=== PATIENT | female | born 1960 | race Caucasian/White ===

== ENCOUNTER 2016-09-03 19:24 | Emergency (ER) | payer OTHER ==
[~2016-09-03] VITALS: Ht 162.6 cm; Wt 63.9 kg
[~2016-09-03 19:24] MED LIST: ASPI81 PO; CYCL-36 PO; MEDR4PAK3 PO; TAB-TAB PO
[2016-09-03 19:42] VITALS: BP 124/82; PULSE 76; RESP 18; TEMP 98.6; O2SAT 97
[2016-09-03] MEDS ORDERED: HYDR25TA5 PO (19:56)
[2016-09-03] MEDS ORDERED: OMEP20TA PO (19:56)
[2016-09-03] MEDS ORDERED: SODIUM CHLOR 0.9% 1000 ML INJ 1,000 ML IV SCH (20:18)
--- NOTE | 2016-09-03 20:21 | PD ---
HPI Chief Complaint: Abdominal Pain Time Seen by Provider: 20:07 Travel History International Travel<30 days: No Contact w/Intl Traveler<30days: No Traveled to known affect area: No History of Present Illness HPI The patient is a 55-year-old female that complains of abdominal pain and pressure nausea for 4 days. She does have some left flank tenderness. She does have a history kidney stones. Her pain level as 0 at this time. She has loose stools, was cerumen normal but denies any diarrhea. She has not been vomiting. She denies any fever. She has not had any abdominal surgery and still has her uterus, appendix and gallbladder. [facility] Past Medical History Diminished Hearing: No GERD: Yes Hypertension: Yes Influenza Vaccination: Yes ?: Not Past Surgical History Surgical History: No Previous Surgery Section: Yes Hysterectomy: Yes (21 YEARS AGO) Social History Alcohol Use: Yes (OCCASIONAL) Tobacco Use: Yes (ONE PACK DAILY) Substance Use: No Allergies-Medications (Allergen,Severity, Reaction): Coded Allergies: No Known Allergies (Verified , 09/03/16) Reported Meds & Prescriptions Reported Meds & Active Scripts Active Reported Hydrochlorothiazide 25 Mg Tab 25 Mg PO DAILY Omeprazole 20 Mg Tab 20 Mg PO DAILY Review of Systems Except as stated in HPI: all other systems reviewed are Neg Physical Exam Narrative GENERAL: The patient is alert, oriented 3 in no apparent distress except for her nausea. Her vital signs are normal. SKIN: Focused skin assessment warm/dry. HEAD: Atraumatic. Normocephalic. EYES: Pupils equal and round. No scleral icterus. No injection or drainage. ENT: No nasal bleeding or discharge. Mucous membranes pink and moist. NECK: Trachea midline. No JVD. CARDIOVASCULAR: Regular rate and rhythm. No murmur appreciated. RESPIRATORY: No accessory muscle use. Clear to auscultation. Breath sounds equal bilaterally. GASTROINTESTINAL: Abdomen soft, with minimal discomfort on the left flank, nondistended. Hepatic and splenic margins not palpable. No guarding or rebound is present. MUSCULOSKELETAL: No obvious deformities. No clubbing. No cyanosis. No edema. NEUROLOGICAL: Awake and alert. No obvious cranial nerve deficits. Motor grossly within normal limits. Normal speech. PSYCHIATRIC: Appropriate mood and affect; insight and judgment normal. Data Data Last Documented VS Vital Signs Date Time Temp Pulse Resp B/P Pulse Ox O2 Delivery O2 Flow Rate FiO2 5/10/17 20:39 20 09/03/16 20:37 71 120/74 95 09/03/16 19:42 98.6 Orders Complete Blood Count With Diff (09/03/16 20:18) Comprehensive Metabolic Panel (09/03/16 20:18) Lipase (09/03/16 20:18) Urinalysis - C+S If Indicated (09/03/16 20:18) Iv Access Insert/Monitor (09/03/16 20:18) Ecg Monitoring (09/03/16 20:18) Oximetry (09/03/16 20:18) Ondansetron Inj (Zofran Inj) (09/03/16 20:30) Sodium Chlor 0.9% 1000 Ml Inj (Ns 1000 M (09/03/16 20:18) Sodium Chloride 0.9% Flush (Ns Flush) (09/03/16 20:30) Labs Laboratory Tests Test 09/03/16 09/03/16 20:10 20:30 White Blood Count 8.8 TH/MM3 Red Blood Count 5.18 MIL/MM3 Hemoglobin 15.0 GM/DL Hematocrit 44.3 % Mean Corpuscular Volume 85.5 FL Mean Corpuscular Hemoglobin 29.0 PG Mean Corpuscular Hemoglobin 33.9 % Concent Red Cell Distribution Width 12.0 % Platelet Count 268 TH/MM3 Mean Platelet Volume 8.7 FL Neutrophils (%) (Auto) 42.7 % Lymphocytes (%) (Auto) 44.7 % Monocytes (%) (Auto) 7.9 % Eosinophils (%) (Auto) 4.1 % Basophils (%) (Auto) 0.6 % Neutrophils # (Auto) 3.7 TH/MM3 Lymphocytes # (Auto) 3.9 TH/MM3 Monocytes # (Auto) 0.7 TH/MM3 Eosinophils # (Auto) 0.4 TH/MM3 Basophils # (Auto) 0.1 TH/MM3 CBC Comment DIFF FINAL Differential Comment Sodium Level 139 MEQ/L Potassium Level 3.5 MEQ/L Chloride Level 98 MEQ/L Carbon Dioxide Level 32.8 MEQ/L Anion Gap 8 MEQ/L Blood Urea Nitrogen 13 MG/DL Creatinine 0.87 MG/DL Estimat Glomerular Filtration 67 ML/MIN Rate Random Glucose 110 MG/DL Calcium Level 8.9 MG/DL Total Bilirubin 0.3 MG/DL Aspartate Amino Transf 21 U/L (AST/SGOT) Alanine Aminotransferase 24 U/L (ALT/SGPT) Alkaline Phosphatase 77 U/L Total Protein 7.1 GM/DL Albumin 3.6 GM/DL Lipase 134 U/L Urine Color YELLOW Urine Turbidity CLEAR Urine pH 7.0 Urine Specific [place] 1.013 Urine Protein NEG mg/dL Urine Glucose (UA) NEG mg/dL Urine Ketones NEG mg/dL Urine Occult Blood TRACE Urine Nitrite NEG Urine Bilirubin NEG Urine Leukocyte Esterase NEG Urine Squamous Epithelial 0-5 /hpf Cells Microscopic Urinalysis Comment CULT NOT INDICATED MDM Medical Decision Making Medical Screen Exam Complete: Yes Emergency Medical Condition: Yes Medical Record Reviewed: Yes Interpretation(s) The CBC is normal. The complete metabolic profile shows a bicarbonate of 33 but is otherwise normal. The lipase is normal. The urinalysis shows trace occult blood but is otherwise normal and culture is not indicated. Differential Diagnosis Diverticulitis, urinary tract infection, urinary stone, gastroenteritis Narrative Course Repeat evaluation on the patient's abdomen abdominal exam shows a completely soft and nontender abdomen. She does tell me she had some pain in the left lower quadrant. This may have been a flareup of diverticulitis, it may have been a urinary stone. She does have loose stools and this may have been a gastroenteritis. Plan: The patient is worried about diverticulitis and she promises she will see a biomedical equipment support specialist about this. She is given Zofran for nausea which has worked well here, she has no nausea now. She is given prescriptions for Flagyl and Cipro and told not to take the antibiotics right away because she may get better in several days if this is a gastroenteritis. She should increase her liquid intake. Diagnosis Primary Impression: Diverticulitis Additional Instructions: As we discussed, the laboratory is normal except for trace amount of blood in the urine. This could be a urinary stone, gastroenteritis or diverticulitis. Because of the possibility of diverticulitis we will write you the antibiotics but do not take them right away, give several days to see if your symptoms resolved. Med/Other Pt SpecificInfo: Prescription(s) given Scripts Metronidazole (Flagyl)500 Mg [id number] Mg PO TID 10 Days Ref 0 Prov:Brendan Smith MD 09/03/16 Ciprofloxacin (Cipro)500 Mg [id number] Mg PO BID 10 Days Ref 0 Prov:Brendan Smith MD 09/03/16 Ondansetron (Zofran)4 Mg Tab4 Mg PO Q6HR PRN (NAUSEA OR VOMITING) #30 TAB Ref 0 Prov:Brendan Smith MD 09/03/16 Disposition: 01 DISCHARGE HOME Condition: Stable Brendan Smith MD September 03, 2016 20:21
[2016-09-03] MEDS ORDERED: SODIUM CHLORIDE 0.9% FLUSH 10 ML FLUSH IV FLUSH PRN (20:30)
[2016-09-03] MEDS ORDERED: ONDANSETRON HCL 4 MG/2 ML VIAL IVP ONE (20:30)
[2016-09-03 20:34] LABS: AUTOMATED NEUTROPHIL # 3.7 TH/MM3 (1.8-7.7); BASOPHIL # 0.1 TH/MM3 (0-0.2); BASOPHIL % 0.6 % (0.0-2.0); EOSINOPHIL # 0.4 TH/MM3 (0-0.4); EOSINOPHIL % 4.1 % (0.0-4.0); HEMATOCRIT 44.3 % (35.0-46.0); HEMO FLAGS DIFF FINAL; LYMPH % 44.7 % (9.0-44.0); LYMPHOCYTE # 3.9 TH/MM3 (1.0-4.8); MEAN CELL VOLUME 85.5 FL (80.0-100.0); MEAN CORPUSCULAR HGB CONC 33.9 % (32.0-36.0); MONO % 7.9 % (0.0-8.0); NEUT % 42.7 % (16.0-70.0); PLATELET COUNT 268 TH/MM3 (150-450); RED BLOOD COUNT 5.18 MIL/MM3 (4.00-5.30); WHITE BLOOD COUNT 8.8 TH/MM3 (4.0-11.0)
[2016-09-03 20:37] VITALS: BP 120/74; PULSE 71; RESP 20; O2SAT 95
[2016-09-03 20:40] LABS: BLOOD, URINE TRACE (NEG); GLUCOSE,URINE NEG (NEG); KETONE, URINE NEG (NEG); NITRITE,URINE NEG (NEG)
[2016-09-03 20:45] LABS: CHLORIDE 98 MEQ/L (98-107); POTASSIUM 3.5 MEQ/L (3.5-5.1); SODIUM (NA) 139 MEQ/L (136-145)
[2016-09-03 20:49] LABS: ANION GAP 8 MEQ/L (5-15); BICARBONATE 32.8 MEQ/L (21.0-32.0); BLOOD UREA NITROGEN 13 MG/DL (7-18)
[2016-09-03 20:52] LABS: URINE COLOR YELLOW (YELLW/STRAW)
[2016-09-03 20:52] LABS: ALT (GPT) 24 U/L (10-53); AST (GOT) 21 U/L (15-37); GLOMERULAR FILTRATION RATE 67 ML/MIN (>89)
[2016-09-03 20:53] LABS: COMMENT (UR) CULT NOT INDICATED; CULTURE IF INDICATED CULT NOT INDICATED; SQUAMOUS EPITHELIAL CELL URINE 0-5 /hpf (0-5)
[2016-09-03 20:54] LABS: TOTAL BILIRUBIN ADULT 0.3 MG/DL (0.2-1.0)
[2016-09-03 20:55] LABS: ALKALINE PHOSPHATASE 77 U/L (45-117)
[2016-09-03] MEDS ORDERED: CIPR-9 PO (22:04)
[2016-09-03] MEDS ORDERED: METR-1 PO (22:04)
[2016-09-03] MEDS ORDERED: ZOFR4TAB PO (22:04)
== END 2016-09-03 22:19 | disposition home or self-care (01) ==
LOC: PHED 19:24
DX: K57.92 Diverticulitis of intestine, part unspecified, without perforation or abscess without bleeding (principal); K21.9 Gastro-esophageal reflux disease without esophagitis; I10 Essential (primary) hypertension; F17.200 Nicotine dependence, unspecified, uncomplicated; Z79.899 Other long term (current) drug therapy
CPT/HCPCS: 80053; 81001; 83690; 85025; 96374; 99284; J2405; J7030

== ENCOUNTER → 2016-11-28 | Outpatient (CLI) | payer OTHER ==
[~2016-11-28] MED LIST changes: -ASPI81 PO; +CIPR-9 PO; -CYCL-36 PO; +HYDR25TA5 PO; -MEDR4PAK3 PO; +METR-1 PO; +OMEP20TA PO; -TAB-TAB PO; +ZOFR4TAB PO
[2016-11-28 13:24] LABS: BLOOD GAS BASE EXCESS 0.6 mmol/L (-2-2); BLOOD GAS CARBOXYHEMOGLOBIN 1.7 % (0-4); BLOOD GAS HCO3 24 mmol/L (22-26); BLOOD GAS O2 HGB SATURATION 94 % (90-100); BLOOD GAS OXYGEN CONTENT 19.5 Vol % (12.0-20.0); BLOOD GAS PCO2 37 mmHg (38-42); BLOOD GAS PO2 85 mmHg (61-120); BLOOD GAS TOTAL HGB 14.7 G/DL (12.0-16.0); TEMP CORR TO 98.6
[2016-11-28 13:25] LABS: CRITICAL VALUE NO; DRAW SITE RT RADIAL; FIO2 21 %; NUMBER OF ARTERIAL PUNCTURES 1; STAT NO; ULNAR PULSE PRESENT
--- NOTE | 2016-12-03 10:01 | RSPPFT ---
DATE OF PROCEDURE: 11/28/16 COMMENTS: Spirometry shows FVC of 2.5 at 83% of predicted, FEV1 of 1.4 at 58%, FEV1/FVC ratio is decreased. Flow is decreased at FEF 25, FEF 50, FEF 75 and FEF 25-75. There is no response after bronchodilator treatment. Lung volumes show residual volume is normal. TLC is normal. Diffusion capacity is decreased. Flow volume loop indicates an obstructive pattern. Blood gases show pH of 7.43, PCO2 of 37, Po2 of 95, BiCarb of 24, O2 Saturation at 94%. IMPRESSION: 1. Moderately severe obstructive lung disease. 2. No response after bronchodilator treatment. 3. Normal lung volumes. 4. Diffusion capacity is moderately decreased. 5. Blood gases show normal oxygenation on room air.
== END ==
LOC: HRSP 12:16
PROVIDERS: ATTEND Specialist
DX: J44.9 Chronic obstructive pulmonary disease, unspecified (principal)
CPT/HCPCS: 36600; 82805; 94060; 94726; 94729

== ENCOUNTER 2017-03-11 08:20 | Inpatient (IN) | payer OTHER ==
[~2017-03-11] VITALS: Ht 162.6 cm; Wt 62.0 kg
[2017-03-11] VITALS (11 sets, daily range): BP systolic 112–152; BP diastolic 67–84; PULSE 74–91; RESP 16–24; TEMP 97.8–98.7; O2SAT 91–99
[~2017-03-11 08:20] MED LIST changes: -OMEP20TA PO; +OMEP20TA93 PO
[2017-03-11] MEDS ORDERED: IOHEXOL 350 MG/ML 10 ML VIAL (for RAD DIAG) IVCONTRAST ONE (08:21)
[2017-03-11] MEDS ORDERED: SODIUM CHLOR 0.9% 1000 ML INJ 1,000 ML IV SCH (09:19)
--- NOTE | 2017-03-11 09:25 | PD ---
HPI Chief Complaint: Abdominal Pain Time Seen by Provider: 09:23 Travel History International Travel<30 days: No Contact w/Intl Traveler<30days: No Traveled to known affect area: No History of Present Illness HPI This Is a 56-year-old female with history of diverticulitis in the past who presents for evaluation of abdominal pain. For the past 2 days she has had lower abdominal pain which she describes as an aching pain which is constant. She had similar pain 1 week ago, She was seen in a walk-in clinic last week and diagnosed with a urinary tract infection and prescribed Macrobid. She reports that eventually she was told that urine culture results were negative. She denies any dysuria but she has had urinary hesitancy as well as constipation. She endorses nausea. Denies vomiting, flank pain, fevers, chills, vaginal bleeding or discharge. She has no other complaints at this time. [facility] Past Medical History Diminished Hearing: No GERD: Yes Hypertension: Yes ?: Not Past Surgical History Section: Yes Hysterectomy: Yes (21 YEARS AGO) Social History Alcohol Use: Yes (OCCASIONAL) Tobacco Use: Yes (ONE PACK DAILY) Substance Use: No Allergies-Medications (Allergen,Severity, Reaction): Coded Allergies: amoxicillin (Verified Allergy, Severe, RASH , 03/11/17) Sulfa (Sulfonamide Antibiotics) (Verified Adverse Reaction, Severe, NAUSEA , 03/11/17) Reported Meds & Prescriptions Reported Meds & Active Scripts Active Reported Anoro Ellipta Inh (Umeclidinium/Vilanterol) 62.5-25 Mcg/Act Aero 1 Puff INH DAILY Omeprazole 20 Mg Tab 20 Mg PO DAILY Review of Systems Except as stated in HPI: all other systems reviewed are Neg Physical Exam Narrative GENERAL: Well-developed well-nourished female in no acute distress SKIN: Warm and dry. HEAD: Atraumatic. Normocephalic. EYES: Pupils equal and round. No scleral icterus. No injection or drainage. ENT: No nasal bleeding or discharge. Mucous membranes pink and moist. NECK: Trachea midline. No JVD. CARDIOVASCULAR: Regular rate and rhythm. No murmur appreciated. RESPIRATORY: No accessory muscle use. Clear to auscultation. Breath sounds equal bilaterally. GASTROINTESTINAL: Abdomen soft, tender to palpation in lower quadrants without guarding. MUSCULOSKELETAL: No obvious deformities. No clubbing. No cyanosis. No edema. NEUROLOGICAL: Awake and alert. No obvious cranial nerve deficits. Motor grossly within normal limits. Normal speech. PSYCHIATRIC: Appropriate mood and affect; insight and judgment normal. Data Data Last Documented VS Vital Signs Date Time Temp Pulse Resp B/P (MAP) Pulse Ox O2 Delivery O2 Flow Rate FiO2 03/11/17 13:02 80 22 129/73 (91) 94 Room Air 03/11/17 08:38 97.8 Orders Orders Complete Blood Count With Diff (03/11/17 09:19) Comprehensive Metabolic Panel (03/11/17 09:19) Lipase (03/11/17 09:19) Urinalysis - C+S If Indicated (03/11/17 09:19) Ct Abd/Pel W Iv Contrast(Rout) (03/11/17 09:19) Iv Access Insert/Monitor (03/11/17 09:19) Ondansetron Inj (Zofran Inj) (03/11/17 09:30) Sodium Chlor 0.9% 1000 Ml Inj (Ns 1000 M (03/11/17 09:19) Morphine Inj (Morphine Inj) (03/11/17 11:00) Iohexol 350 Inj (Omnipaque 350 Inj) (03/11/17 08:21) Ciprofloxacin 400 Mg Premix (Cipro 400 M (03/11/17 12:45) Metronidazole 500 Mg Inj (Flagyl 500 Mg (03/11/17 12:45) Lactic Acid Sepsis Protocol (03/11/17 12:34) Blood Culture (03/11/17 12:34) Admit Order (Ed Use Only) (03/11/17 13:58) Consult Colorectal Surgery (03/11/17 ) Labs Laboratory Tests Test 03/11/17 10:10 03/11/17 10:15 03/11/17 12:45 Urine Color COLORLESS Urine Turbidity CLEAR Urine pH 7.5 Urine Specific [place] 1.001 Urine Protein NEG mg/dL Urine Glucose (UA) NEG mg/dL Urine Ketones NEG mg/dL Urine Occult Blood NEG Urine Nitrite NEG Urine Bilirubin NEG Urine Urobilinogen LESS THAN 2.0 MG/DL Urine Leukocyte Esterase NEG Urine RBC LESS THAN 1 /hpf Microscopic Urinalysis Comment CULT NOT INDICATED White Blood Count 17.2 TH/MM3 Red Blood Count 5.13 MIL/MM3 Hemoglobin 14.9 GM/DL Hematocrit 44.6 % Mean Corpuscular Volume 86.9 FL Mean Corpuscular Hemoglobin 29.0 PG Mean Corpuscular Hemoglobin Concent 33.4 % Red Cell Distribution Width 13.7 % Platelet Count 296 TH/MM3 Mean Platelet Volume 8.2 FL Neutrophils (%) (Auto) 79.0 % Lymphocytes (%) (Auto) 13.8 % Monocytes (%) (Auto) 6.5 % Eosinophils (%) (Auto) 0.4 % Basophils (%) (Auto) 0.3 % Neutrophils # (Auto) 13.6 TH/MM3 Lymphocytes # (Auto) 2.4 TH/MM3 Monocytes # (Auto) 1.1 TH/MM3 Eosinophils # (Auto) 0.1 TH/MM3 Basophils # (Auto) 0.1 TH/MM3 CBC Comment DIFF FINAL Differential Comment Blood Urea Nitrogen 7 MG/DL Creatinine 0.60 MG/DL Random Glucose 98 MG/DL Total Protein 7.3 GM/DL Albumin 3.1 GM/DL Calcium Level 9.2 MG/DL Alkaline Phosphatase 86 U/L Aspartate Amino Transf (AST/SGOT) 20 U/L Alanine Aminotransferase (ALT/SGPT) 24 U/L Total Bilirubin 0.5 MG/DL Sodium Level 131 MEQ/L Potassium Level 3.9 MEQ/L Chloride Level 95 MEQ/L Carbon Dioxide Level 28.5 MEQ/L Anion Gap 8 MEQ/L Estimat Glomerular Filtration Rate 103 ML/MIN Lipase 76 U/L Lactic Acid Level 0.7 mmol/L MDM Medical Decision Making Medical Screen Exam Complete: Yes Emergency Medical Condition: Yes Medical Record Reviewed: Yes Differential Diagnosis Diverticulitis, colitis, appendicitis, intra-abdominal mass, cystitis Narrative Course 56-year-old female with lower abdominal pain. She appears well. Plan is for basic lab work, CT abdomen and pelvis. She was given IV fluids, Zofran, morphine. Labwork notable for WBC count of 17. CT of the abdomen and pelvis reveals intense inflammatory change and phlegmon involving the distal sigmoid at the rectosigmoid junction. The exam does demonstrate what is either a large diverticulum with some gas and stool within it or possibly a small abscess along the superior margin of the colon. This is not in a location which would be amenable to CT-guided drainage. IV antibiotics have been initiated. Lactic acid, blood cultures have been added on. Colorectal surgery was paged, the patient will be admitted to the hospitalist group. Diagnosis Primary Impression: Diverticulitis Admitting Information Admitting Physician Requests: Admit Rayo Chapa Mar 11, 2017 09:25
[2017-03-11] MEDS ORDERED: ONDANSETRON HCL 4 MG/2 ML VIAL IVP ONE (09:30)
--- NOTE | 2017-03-11 09:37 | PD ---
Physical Exam Date Seen by Provider: Mar 11, 2017 Narrative Patient presents with a chief complaint of lower abdominal pain Data Data Last Documented VS Vital Signs Date Time Temp Pulse Resp B/P (MAP) Pulse Ox O2 Delivery O2 Flow Rate FiO2 03/11/17 08:38 97.8 90 17 152/82 (105) 96 Orders Orders Complete Blood Count With Diff (03/11/17 09:19) Comprehensive Metabolic Panel (03/11/17 09:19) Lipase (03/11/17 09:19) Urinalysis - C+S If Indicated (03/11/17 09:19) Ct Abd/Pel W Iv Contrast(Rout) (03/11/17 09:19) Iv Access Insert/Monitor (03/11/17 09:19) Ondansetron Inj (Zofran Inj) (03/11/17 09:30) Sodium Chlor 0.9% 1000 Ml Inj (Ns 1000 M (03/11/17 09:19) MDM Supervised Visit with ISAAC: Yes Narrative Course I, Dr. Almanzar, have reviewed the advance practice practitioner's documentation and am in agreement, met with the patient face to face, made the diagnosis, and the medical decision making was done by me. *My assessment and Findings: Patient is lying on the bed with her eyes closed the entire time that I was talking with her. Her abdomen was soft but she did have some lower abdominal tenderness. No guarding or rebound. Please see Rayo Chapa PA-C's note for results of laboratory and radiographic evaluation, ED course, final diagnosis and disposition Miguelina Almanzar MD Mar 11, 2017 09:37
[2017-03-11 10:56] LABS: BLOOD, URINE NEG (NEG); GLUCOSE,URINE NEG (NEG); KETONE, URINE NEG (NEG); NITRITE,URINE NEG (NEG); PH, URINE 7.5 (5.0-8.5); URINE COLOR COLORLESS (YELLW/STRAW)
[2017-03-11 10:57] LABS: COMMENT (UR) CULT NOT INDICATED; CULTURE IF INDICATED CULT NOT INDICATED
[2017-03-11 10:58] LABS: AUTOMATED NEUTROPHIL # 13.6 TH/MM3 (1.8-7.7); BASOPHIL # 0.1 TH/MM3 (0-0.2); BASOPHIL % 0.3 % (0.0-2.0); EOSINOPHIL # 0.1 TH/MM3 (0-0.4); EOSINOPHIL % 0.4 % (0.0-4.0); HEMATOCRIT 44.6 % (35.0-46.0); HEMO FLAGS DIFF FINAL; LYMPH % 13.8 % (9.0-44.0); LYMPHOCYTE # 2.4 TH/MM3 (1.0-4.8); MEAN CELL VOLUME 86.9 FL (80.0-100.0); MEAN CORPUSCULAR HGB CONC 33.4 % (32.0-36.0); MONO % 6.5 % (0.0-8.0); PLATELET COUNT 296 TH/MM3 (150-450); RED BLOOD COUNT 5.13 MIL/MM3 (4.00-5.30); RED CELL DISTRIBUTION WIDTH 13.7 % (11.6-17.2); WHITE BLOOD COUNT 17.2 TH/MM3 (4.0-11.0)
[2017-03-11] MEDS ORDERED: MORPHINE SULFATE 4 MG/ML INJ IV PUSH ONE (11:00)
[2017-03-11 11:12] LABS: ALT (GPT) 24 U/L (10-53)
[2017-03-11 11:14] LABS: ALKALINE PHOSPHATASE 86 U/L (45-117); TOTAL BILIRUBIN ADULT 0.5 MG/DL (0.2-1.0)
[2017-03-11 11:20] LABS: ANION GAP 8 MEQ/L (5-15); AST (GOT) 20 U/L (15-37); BICARBONATE 28.5 MEQ/L (21.0-32.0); BLOOD UREA NITROGEN 7 MG/DL (7-18); CHLORIDE 95 MEQ/L (98-107); GLOMERULAR FILTRATION RATE 103 ML/MIN (>89); SODIUM (NA) 131 MEQ/L (136-145)
[2017-03-11 11:24] LABS: POTASSIUM 3.9 MEQ/L (3.5-5.1)
--- NOTE | 2017-03-11 12:28 | RADRPT ---
EXAM DATE/TIME: 03/11/2017 11:48 [place] COMPARISON: No previous studies available for comparison. INDICATIONS : Mid abdomen pain for one week. IV CONTRAST: 85 cc Omnipaque 350 (iohexol) IV ORAL CONTRAST: No oral contrast ingested. RADIATION DOSE: 6.30 CTDIvol (mGy) MEDICAL HISTORY : Hypertension. SURGICAL HISTORY : Hysterectomy. ENCOUNTER: Initial ACUITY: 1 week PAIN SCALE: 7/10 LOCATION: middle Abdomen TECHNIQUE: Volumetric scanning of the abdomen and pelvis was performed. Using automated exposure control and ad justment of the mA and/or kV according to patient size, radiation dose was kept as low as reasonably achievable to obtain optimal diagnostic quality images. DICOM format image data is available electro nically for review and comparison. FINDINGS: The limited portion of the lung base visualized is clear. The appearance of the liver, spleen, pancreas, adrenal glands and kidneys is within normal limits. The abdominal aorta is normal in caliber. There is no retroperitoneal adenopathy. No free air is seen within the upper abdomen. Imaging through the pelvis demonstrate intense inflammatory changes involving the distal sigmoid colo n and rectosigmoid junction. There are scattered diverticuli through this area. Exam would be most co nsistent with an acute diverticulitis. There is a focal area of the top of the inflamed segment of co selam measuring approximately 2.7 cm. This either represents a large diverticulum with gas and stool wi thin it or possibly small abscess. This is not in a location which would be amenable to CT-guided sonam inage. No free intraperitoneal air is seen. No iliac or inguinal adenopathy is seen. The reproductive organs are intact. CONCLUSION: There is intense inflammatory change and phlegmon involving the distal sigmoid at the rectosigmoid ju nction. The exam does demonstrate what is either a large diverticulum with some gas and stool within it or possibly a small abscess along the superior margin of the colon. This is not in a location whic h would be amenable to CT-guided drainage. Chucho Tellez MD on March 11, 2017 at 12:21 Board Certified Radiologist. This report was verified electronically.
[2017-03-11] MEDS ORDERED: metroNIDAZOLE 500 MG INJ 100 ML IV ONE (12:45)
[2017-03-11] MEDS ORDERED: CIPROFLOXACIN 400 MG PREMIX 200 ML IV ONE (12:45)
[2017-03-11] MEDS ORDERED: UMEC1AER INH (13:04)
--- NOTE | 2017-03-11 15:47 | HHI.HP ---
HPI Service [facility] Hospitalists Primary Care Physician Edgard Garcia MD Admission Diagnosis diverticulitis, possible abscess Chief Complaint: Abdominal pain Travel History International Travel<30 Days: No Contact w/Intl Traveler <30 Da: No Traveled to Known Affected Are: No History of Present Illness Mrs. Sweet is a pleasant 56 y/o WF with COPD, GERD, hx of colon polyps and hx of diverticulitis. Pt presented to the ED with complaints of abd pain. The pt started having abd pain around 10 days ago. She was seen at urgent care on with complaints of abd pain and dysuria and was given Macrobid x 7 days for possible UTI. She had some slight improvement while on the antibiotics but then after that was completed she started having more abd pain in the lower abdomen and constipation. Over the last few days those symptoms seemed to worsen and this prompted her to go to the ED. She has had difficulty with passing stools and took OTC oral laxative the last two times to try to have a BM. The pain is located more in the LLQ and lower abd pain. CT Abd/pelvis in the ED noted intense inflammatory change and phlegmon involving the distal sigmoid at the rectosigmoid junction, the exam does demonstrate what is either a large diverticulum with some gas and stool within it or possibly a small abscess along the superior margin of the colon. This is not in a location which would be amenable to CT-guided drainage. Pt was given Cipro and Flagyl in the ED. She is being admitted for continued IV Abx and CRS was consulted from the ED. Pt has had some issues with fecal incontinence recently and is following with [facility]. She was supposed to have a colonoscopy scheduled but hasn't scheduled that yet. Her last colonoscopy was around 08/14/2008 and had noted a sessile polyp in the cecum and was recommended to have a repeat colonoscopy in 1 year which she has not had done. Review of Systems Constitutional: DENIES: Fever, Chills Eyes: DENIES: Vision loss Ears, nose, mouth, throat: DENIES: Hearing loss Respiratory: DENIES: Cough, Shortness of breath Cardiovascular: DENIES: Chest pain, Palpitations, Lower Extremity Edema Gastrointestinal: COMPLAINS OF: Abdominal pain, Constipation, DENIES: Black stools, Bloody stools, Diarrhea, Nausea, Vomiting Genitourinary: COMPLAINS OF: Dysuria, DENIES: Urinary incontinence, Hematuria Musculoskeletal: DENIES: Back pain Integumentary: DENIES: Rash Neurologic: DENIES: Headache Psychiatric: DENIES: Confusion Past Family Social History Past Medical History COPD GERD Hx of HTN Questionable diagnosis with relapsing/remitting MS but has been off medications for about 10 years pt had previous numbness in both legs and she states that she had "lesions" on her brain Pt followed with Dr. Blum Past Surgical History Cesarian section 31 years ago Reported Medications Anoro Ellipta Inh (Umeclidinium/Vilanterol) 62.5-25 Mcg/Act Aero 1 Puff INH DAILY Omeprazole 20 Mg Tab 20 Mg PO DAILY Allergies: Coded Allergies: amoxicillin (Verified Allergy, Severe, RASH , 03/11/17) Sulfa (Sulfonamide Antibiotics) (Verified Adverse Reaction, Severe, NAUSEA , 03/11/17) Family History Noncontributory Social History Rare alcohol use (+)Tobacco use ~1ppd for 30+ years, now smokes a couple cigarettes per day Physical Exam Vital Signs Vital Signs Date Time Temp Pulse Resp B/P (MAP) Pulse Ox O2 Delivery O2 Flow Rate FiO2 03/11/17 13:02 80 22 129/73 (91) 94 Room Air 03/11/17 12:00 22 03/11/17 11:30 80 24 131/82 (98) 94 Room Air 03/11/17 10:30 82 22 128/82 (97) 97 Room Air 03/11/17 10:06 79 23 134/84 (101) 96 Room Air 03/11/17 08:38 97.8 90 17 152/82 (105) 96 Physical Exam GENERAL: This is a well-nourished, well-developed patient, in no apparent distress. HEENT: Atraumatic. Normocephalic. No temporal or scalp tenderness. No scleral icterus. Airway patent. NECK: Trachea midline, supple, nontender. CARDIO: Regular. RESP: CTA bilaterally. No wheezes, rales, or rhonchi. ABD: +BS, soft, lower abdominal tenderness, nondistended. EXT: Extremities without clubbing, cyanosis, or edema. NEURO: Awake and alert. Motor and sensory grossly within normal limits. Normal speech. Laboratory Laboratory Tests Test 03/11/17 10:10 03/11/17 10:15 03/11/17 12:45 Urine Color COLORLESS Urine Turbidity CLEAR Urine pH 7.5 Urine Specific [place] 1.001 Urine Protein NEG Urine Glucose (UA) NEG Urine Ketones NEG Urine Occult Blood NEG Urine Nitrite NEG Urine Bilirubin NEG Urine Urobilinogen LESS THAN 2.0 Urine Leukocyte Esterase NEG Urine RBC LESS THAN 1 Microscopic Urinalysis Comment CULT NOT INDICATED White Blood Count 17.2 Red Blood Count 5.13 Hemoglobin 14.9 Hematocrit 44.6 Mean Corpuscular Volume 86.9 Mean Corpuscular Hemoglobin 29.0 Mean Corpuscular Hemoglobin Concent 33.4 Red Cell Distribution Width 13.7 Platelet Count 296 Mean Platelet Volume 8.2 Neutrophils (%) (Auto) 79.0 Lymphocytes (%) (Auto) 13.8 Monocytes (%) (Auto) 6.5 Eosinophils (%) (Auto) 0.4 Basophils (%) (Auto) 0.3 Neutrophils # (Auto) 13.6 Lymphocytes # (Auto) 2.4 Monocytes # (Auto) 1.1 Eosinophils # (Auto) 0.1 Basophils # (Auto) 0.1 CBC Comment DIFF FINAL Differential Comment Blood Urea Nitrogen 7 Creatinine 0.60 Random Glucose 98 Total Protein 7.3 Albumin 3.1 Calcium Level 9.2 Alkaline Phosphatase 86 Aspartate Amino Transf (AST/SGOT) 20 Alanine Aminotransferase (ALT/SGPT) 24 Total Bilirubin 0.5 Sodium Level 131 Potassium Level 3.9 Chloride Level 95 Carbon Dioxide Level 28.5 Anion Gap 8 Estimat Glomerular Filtration Rate 103 Lipase 76 Lactic Acid Level 0.7 Date/Time Source Procedure Growth Status 03/11/17 12:46 Blood Peripheral Aerobic Blood Culture Pending Received 03/11/17 12:46 Blood Peripheral Anaerobic Blood Culture Pending Received Result Diagram: 03/11/17 1015 03/11/17 1015 Imaging Last Impressions Abdomen/Pelvis CT 03/11/17 0919 Signed Impressions: Service Date/Time: Saturday, March 11, 2017 11:48 - CONCLUSION: There is intense inflammatory change and phlegmon involving the distal sigmoid at the rectosigmoid junction. The exam does demonstrate what is either a large diverticulum with some gas and stool within it or possibly a small abscess along the superior margin of the colon. This is not in a location which would be amenable to CT-guided drainage. Chucho Tellez MD Septic Shock Reassessment Heart: Regular rate and rhythm Lungs: Clear Skin: Warm Caprini VTE Risk Assessment Caprini VTE Risk Assessment: No/Low Risk (score <= 1) Caprini Risk Assessment Model Point Value = 1 Point Value = 2 Point Value = 3 Point Value = 5 Age 41-60 Minor surgery BMI > 25 kg/m2 Swollen legs Varicose veins or History of unexplained or recurrent spontaneous Oral contraceptives or hormone replacement Sepsis (< 1 month) Serious lung disease, including pneumonia (< 1 month) Abnormal pulmonary function Acute myocardial infarction Congestive heart failure (< 1 month) History of inflammatory bowel disease Medical patient at bed rest Age 61-74 Arthroscopic surgery Major open surgery (> 45 min) Laparoscopic surgery (> 45 min) Malignancy Confined to bed (> 72 hours) Immobilizing plaster cast Central venous access Age >= 75 History of VTE Family history of VTE Factor V Leiden Prothrombin [id number] Lupus anticoagulant Anticardiolipin antibodies Elevated serum homocysteine Heparin-induced thrombocytopenia Other congenital or acquired thrombophilia Stroke (< 1 month) Elective arthroplasty Hip, pelvis, or leg fracture Acute spinal cord injury (< 1 month) Prophylaxis Regimen Total Risk Factor Score Risk Level Prophylaxis Regimen 0-1 Low Early ambulation 2 Moderate Order ONE of the following: *Sequential Compression Device (SCD) *Heparin 5000 units SQ BID 3-4 Higher Order ONE of the following medications: *Heparin 5000 units SQ TID *Enoxaparin/Lovenox 40 mg SQ daily (WT < 150 kg, CrCl > 30 mL/min) *Enoxaparin/Lovenox 30 mg SQ daily (WT < 150 kg, CrCl > 10-29 mL/min) *Enoxaparin/Lovenox 30 mg SQ BID (WT < 150 kg, CrCl > 30 mL/min) AND/OR *Sequential Compression Device (SCD) 5 or more Highest Order ONE of the following medications: *Heparin 5000 units SQ TID (Preferred with Epidurals) *Enoxaparin/Lovenox 40 mg SQ daily (WT < 150 kg, CrCl > 30 mL/min) *Enoxaparin/Lovenox 30 mg SQ daily (WT < 150 kg, CrCl > 10-29 mL/min) *Enoxaparin/Lovenox 30 mg SQ BID (WT < 150 kg, CrCl > 30 mL/min) AND *Sequential Compression Device (SCD) Assessment and Plan Problem List: (1) Diverticulitis ICD Codes: K57.92 - Diverticulitis of intestine, part unspecified, without perforation or abscess without bleeding Status: Acute Plan: Diverticulitis Abdominal pain - Pt was admitted with worsening abd pain with remote hx of diverticulitis, constipation, and hx of colon polyps - CT Abd/pelvis (03/11/17) --> There is intense inflammatory change and phlegmon involving the distal sigmoid at the rectosigmoid junction. The exam does demonstrate what is either a large diverticulum with some gas and stool within it or possibly a small abscess along the superior margin of the colon. This is not in a location which would be amenable to CT -guided drainage. - Pt has been started on Flagyl and Levaquin IV - IVF - Clear liquid diet - Pain control PRN - Antiemetics - CRS was consulted in the ED - Supportive care GERD - PPI COPD - Cont. home meds - Duonebs PRN (2) GERD (gastroesophageal reflux disease) ICD Codes: K21.9 - Gastro-esophageal reflux disease without esophagitis (3) COPD (chronic obstructive pulmonary disease) ICD Codes: J44.9 - Chronic obstructive pulmonary disease, unspecified Tere Rogers Mar 11, 2017 15:47
[2017-03-11] MEDS ORDERED: ACETAMINOPHEN 325 MG TAB PO PRN (16:15)
[2017-03-11] MEDS ORDERED: ONDANSETRON HCL 4 MG/2 ML VIAL IV PRN (16:15)
[2017-03-11] MEDS: SODIUM CHLOR 0.9% 1000 ML INJ 1,000 ML IV SCH (17:45)
[2017-03-11] MEDS: MORPHINE SULFATE 4 MG/ML INJ IV PUSH PRN (17:45)
[2017-03-11] MEDS: metroNIDAZOLE 500 MG INJ 100 ML IV SCH (21:05)
[2017-03-12] VITALS: BP 113/67; PULSE 82; RESP 17; TEMP 96.8; O2SAT 91
[2017-03-12] MEDS: SODIUM CHLOR 0.9% 1000 ML INJ 1,000 ML IV SCH ×2 (02:15→13:16)
[2017-03-12] MEDS: metroNIDAZOLE 500 MG INJ 100 ML IV SCH ×3 (04:55→20:55)
[2017-03-12] MEDS: ACETAMINOPHEN/HYDROcodone 325 MG/5 MG TAB PO PRN ×3 (05:21→17:36)
[2017-03-12 08:00] VITALS: BP 115/60; PULSE 69; RESP 17; TEMP 96.2; O2SAT 92
[2017-03-12 08:53] LABS: BASOPHIL # 0.1 TH/MM3 (0-0.2); BASOPHIL % 0.4 % (0.0-2.0); EOSINOPHIL # 0.1 TH/MM3 (0-0.4); EOSINOPHIL % 0.8 % (0.0-4.0); HEMATOCRIT 41.8 % (35.0-46.0); HEMO FLAGS DIFF FINAL; LYMPH % 15.2 % (9.0-44.0); LYMPHOCYTE # 2.2 TH/MM3 (1.0-4.8); MEAN CELL VOLUME 87.3 FL (80.0-100.0); MEAN CORPUSCULAR HEMOGLOBIN 29.2 PG (27.0-34.0); MEAN CORPUSCULAR HGB CONC 33.4 % (32.0-36.0); MONO % 8.2 % (0.0-8.0); NEUT % 75.4 % (16.0-70.0); PLATELET COUNT 276 TH/MM3 (150-450); RED BLOOD COUNT 4.79 MIL/MM3 (4.00-5.30); RED CELL DISTRIBUTION WIDTH 13.5 % (11.6-17.2); WHITE BLOOD COUNT 14.5 TH/MM3 (4.0-11.0)
[2017-03-12 09:21] LABS: POTASSIUM 3.7 MEQ/L (3.5-5.1)
[2017-03-12 10:04] LABS: BICARBONATE 24.6 MEQ/L (21.0-32.0)
[2017-03-12] MEDS ORDERED: POLYETHYLENE GLYCOL 17 GM PKG PO PRN (10:45)
--- NOTE | 2017-03-12 10:45 | HHI.PR ---
Subjective Remarks Pt reports that her abd pain is slightly better today No BM No nausea/vomiting Tolerating clear liquids Objective Vitals Vital Signs Date Time Temp Pulse Resp B/P (MAP) Pulse Ox O2 Delivery O2 Flow Rate FiO2 03/12/17 08:00 96.2 69 17 115/60 (78) 92 03/12/17 06:36 20 03/12/17 00:00 96.8 82 17 113/67 (82) 91 03/11/17 20:00 98.7 91 18 117/67 (84) 91 03/11/17 18:00 98.4 82 16 116/68 (84) 94 03/11/17 17:57 03/11/17 17:00 80 23 127/74 (91) 99 Nasal Cannula 2.00 03/11/17 16:30 84 23 139/74 (95) 98 Nasal Cannula 2.00 03/11/17 15:00 74 24 122/74 (90) 99 Nasal Cannula 2.00 03/11/17 14:00 80 24 112/69 (83) 92 Nasal Cannula 2.00 03/11/17 13:02 80 22 129/73 (91) 94 Room Air 03/11/17 12:00 22 03/11/17 11:30 80 24 131/82 (98) 94 Room Air Result Diagram: 03/12/17 0751 03/12/17 0751 Other Results Laboratory Tests Test 03/11/17 10:10 03/11/17 10:15 03/11/17 12:45 03/12/17 07:51 Urine Color COLORLESS Urine Turbidity CLEAR Urine pH 7.5 Urine Specific [place] 1.001 Urine Protein NEG mg/dL Urine Glucose (UA) NEG mg/dL Urine Ketones NEG mg/dL Urine Occult Blood NEG Urine Nitrite NEG Urine Bilirubin NEG Urine Urobilinogen LESS THAN 2.0 MG/DL Urine Leukocyte Esterase NEG Urine RBC LESS THAN 1 /hpf Microscopic Urinalysis Comment CULT NOT INDICATED White Blood Count 17.2 TH/MM3 14.5 TH/MM3 Red Blood Count 5.13 MIL/MM3 4.79 MIL/MM3 Hemoglobin 14.9 GM/DL 14.0 GM/DL Hematocrit 44.6 % 41.8 % Mean Corpuscular Volume 86.9 FL 87.3 FL Mean Corpuscular Hemoglobin 29.0 PG 29.2 PG Mean Corpuscular Hemoglobin Concent 33.4 % 33.4 % Red Cell Distribution Width 13.7 % 13.5 % Platelet Count 296 TH/MM3 276 TH/MM3 Mean Platelet Volume 8.2 FL 8.1 FL Neutrophils (%) (Auto) 79.0 % 75.4 % Lymphocytes (%) (Auto) 13.8 % 15.2 % Monocytes (%) (Auto) 6.5 % 8.2 % Eosinophils (%) (Auto) 0.4 % 0.8 % Basophils (%) (Auto) 0.3 % 0.4 % Neutrophils # (Auto) 13.6 TH/MM3 11.0 TH/MM3 Lymphocytes # (Auto) 2.4 TH/MM3 2.2 TH/MM3 Monocytes # (Auto) 1.1 TH/MM3 1.2 TH/MM3 Eosinophils # (Auto) 0.1 TH/MM3 0.1 TH/MM3 Basophils # (Auto) 0.1 TH/MM3 0.1 TH/MM3 CBC Comment DIFF FINAL DIFF FINAL Differential Comment Blood Urea Nitrogen 7 MG/DL 8 MG/DL Creatinine 0.60 MG/DL 0.61 MG/DL Random Glucose 98 MG/DL 91 MG/DL Total Protein 7.3 GM/DL Albumin 3.1 GM/DL Calcium Level 9.2 MG/DL 8.6 MG/DL Alkaline Phosphatase 86 U/L Aspartate Amino Transf (AST/SGOT) 20 U/L Alanine Aminotransferase (ALT/SGPT) 24 U/L Total Bilirubin 0.5 MG/DL Sodium Level 131 MEQ/L 137 MEQ/L Potassium Level 3.9 MEQ/L 3.7 MEQ/L Chloride Level 95 MEQ/L 102 MEQ/L Carbon Dioxide Level 28.5 MEQ/L 24.6 MEQ/L Anion Gap 8 MEQ/L 10 MEQ/L Estimat Glomerular Filtration Rate 103 ML/MIN 101 ML/MIN Lipase 76 U/L Lactic Acid Level 0.7 mmol/L Imaging Last Impressions Abdomen/Pelvis CT 03/11/17 0919 Signed Impressions: Service Date/Time: Saturday, March 11, 2017 11:48 - CONCLUSION: There is intense inflammatory change and phlegmon involving the distal sigmoid at the rectosigmoid junction. The exam does demonstrate what is either a large diverticulum with some gas and stool within it or possibly a small abscess along the superior margin of the colon. This is not in a location which would be amenable to CT-guided drainage. Chucho Tellez MD Objective Remarks General: NAD, AAOx3 Chest: CTA Cardiac: Regular Abd: +BS, soft, mildly distended, left sided tenderness, no guarding or rebound Ext: No edema A/P Problem List: (1) Diverticulitis ICD Codes: K57.92 - Diverticulitis of intestine, part unspecified, without perforation or abscess without bleeding Status: Acute Plan: Diverticulitis Abdominal pain - Pt was admitted with worsening abd pain with remote hx of diverticulitis, constipation, and hx of colon polyps - CT Abd/pelvis (03/11/17) --> There is intense inflammatory change and phlegmon involving the distal sigmoid at the rectosigmoid junction. The exam does demonstrate what is either a large diverticulum with some gas and stool within it or possibly a small abscess along the superior margin of the colon. This is not in a location which would be amenable to CT -guided drainage. - Cont Flagyl and Levaquin IV - IVF - Clear liquid diet - Pain control PRN - Antiemetics - Awaiting CRS consultation - Supportive care GERD - PPI COPD - Cont. home meds - Duonebs PRN (2) GERD (gastroesophageal reflux disease) ICD Codes: K21.9 - Gastro-esophageal reflux disease without esophagitis Status: Chronic Plan: - See above (3) COPD (chronic obstructive pulmonary disease) ICD Codes: J44.9 - Chronic obstructive pulmonary disease, unspecified Status: Chronic Plan: - See above Assessment and Plan Patient examined. Assessment and plan formulated with Tere Rogers PA-C. I agree with the above. diverticulitis. improving. cont ivf/clears/abx. CRS following. d/c tomorrow and f/u if ok with CRS Tere Rogers Mar 12, 2017 10:45 Tim Gauthier MD Mar 12, 2017 15:12
[2017-03-12] MEDS: DOCUSATE SODIUM 100 MG CAP PO SCH ×2 (11:02→20:55)
[2017-03-12 12:00] VITALS: BP 120/68; PULSE 72; RESP 17; TEMP 97.5; O2SAT 94
[2017-03-12] MEDS: LEVOFLOXACIN 500 MG PREMIX INJ 100 ML IV SCH (13:16)
[2017-03-12 16:00] VITALS: BP 133/72; PULSE 81; RESP 17; TEMP 97.2; O2SAT 97
[2017-03-12 20:00] VITALS: BP 145/82; PULSE 85; RESP 18; TEMP 97.9; O2SAT 94
--- NOTE | 2017-03-12 23:33 | MB ---
cc: MARGRET WALSH M.D., [place] DATE OF CONSULTATION March 12, 2017 CHIEF COMPLAINT Diverticulitis. HISTORY OF PRESENT ILLNESS The patient is a 56-year-old female with a history of COPD and colon polyps. She came to the emergency department with abdominal pain. She was actually seen in the urgent care about 8-9 days ago with complaints of abdominal pain, dysuria and was felt to have a urinary tract infection. She was treated with Macrobid with minimal improvement but as her pain continued she came to the emergency department. She was evaluated by CT scan which showed evidence of diverticulitis with a possible either abscess versus a large diverticulum with some gas in it which was not amenable to CT-guided drainage. She was treated with Cipro and Flagyl and I have been asked to see her. She says since arriving in the hospital her pain has improved somewhat, although, she is still having significant pain. She has had multiple previous episodes of diverticulitis, she thinks possibly three or four, none of which have been complicated by a fistula or abscess to her knowledge. Her most recent colonoscopy was in 2008 and at that time she was noted to have sessile polyp in the cecum but did not follow up with the recommended 1 year colonoscopy. PAST MEDICAL HISTORY 1. COPD. 2. Gastroesophageal reflux disease. 3. History of hypertension. 4. Possible history of MS. PAST SURGICAL HISTORY . ALLERGIES AMOXICILLIN AND SULFA. MEDICATIONS 1. Anoro Ellipta. 2. Omeprazole. SOCIAL HISTORY She smokes a few cigarettes per day. Alcohol is occasional. PHYSICAL EXAMINATION GENERAL: Reveals alert female who appears comfortable. NEURO: Grossly intact. SKIN: Skin is warm, dry. HEENT: Head is normocephalic, atraumatic. CARDIOVASCULAR: Regular rate. CHEST: Breathing is symmetric bilaterally without effort. ABDOMEN: Soft, nondistended. She does have tenderness both on the right and the left side, the left more than the right. There are no palpable masses. EXTREMITIES: Reveal no edema. LABORATORY DATA Laboratory work reveals a white count of 14.5, hemoglobin of 14.0, platelets of 276. Chemistry is essentially normal today and urinalysis is negative. IMPRESSION CT scan is as mentioned. IMPRESSION Diverticulitis. PLAN I believe that the most appropriate treatment is to continue her current IV antibiotics with a short session of bowel rest. Once we get her acute phase under control she can be discharged home with followup, to follow up with myself in the office. At that point hopefully I can get a little bit more definitive information on her previous episodes and we can make a determination whether or not surgery would be prudent for her. The natural history of diverticular disease as well as the indications for surgery were discussed with the patient in detail today. If, however, she fails to improve or worsens during this hospitalization we may need to more urgently to the operating room which would entail an emergency surgery with end colostomy and second surgery for reanastomosis. Margret Walsh MD KW/EO /10:55 PM /11:08 PM
[2017-03-13] VITALS: BP 130/73; PULSE 78; RESP 22; TEMP 97.6; O2SAT 93
[2017-03-13] MEDS: MORPHINE SULFATE 4 MG/ML INJ IV PUSH PRN ×4 (01:22→21:19)
[2017-03-13] MEDS: SODIUM CHLOR 0.9% 1000 ML INJ 1,000 ML IV SCH ×3 (01:22→18:15)
[2017-03-13 04:00] VITALS: BP_SYST 116; BP_SYST 142; BP_DIAS 70; BP_DIAS 92; PULSE 74; PULSE 78; RESP 22; TEMP 99.3; TEMP 99.6; O2SAT 93; O2SAT 95
[2017-03-13] MEDS: metroNIDAZOLE 500 MG INJ 100 ML IV SCH ×3 (05:11→21:17)
[2017-03-13 08:00] VITALS: BP 117/75; PULSE 78; RESP 17; TEMP 97.1; O2SAT 93
[2017-03-13] MEDS: DOCUSATE SODIUM 100 MG CAP PO SCH ×2 (08:44→21:17)
--- NOTE | 2017-03-13 10:06 | HHI.PR ---
Subjective Remarks Pt feels that she was having increased abd pain last night, maybe gas pains. She thinks she may be somewhat constipated as well Tolerating clear liquids. Objective Vitals Vital Signs Date Time Temp Pulse Resp B/P (MAP) Pulse Ox O2 Delivery O2 Flow Rate FiO2 03/13/17 08:00 97.1 78 17 117/75 (89) 93 03/13/17 04:00 99.6 78 22 116/70 (85) 93 03/13/17 01:45 20 03/13/17 00:00 97.6 78 22 130/73 (92) 93 03/12/17 20:00 97.9 85 18 145/82 (103) 94 03/12/17 16:00 97.2 81 17 133/72 (92) 97 03/12/17 12:00 97.5 72 17 120/68 (85) 94 Result Diagram: 03/12/17 0751 03/12/17 0751 Other Results Laboratory Tests Test 03/11/17 10:10 03/11/17 10:15 03/11/17 12:45 03/12/17 07:51 Urine Color COLORLESS Urine Turbidity CLEAR Urine pH 7.5 Urine Specific [place] 1.001 Urine Protein NEG mg/dL Urine Glucose (UA) NEG mg/dL Urine Ketones NEG mg/dL Urine Occult Blood NEG Urine Nitrite NEG Urine Bilirubin NEG Urine Urobilinogen LESS THAN 2.0 MG/DL Urine Leukocyte Esterase NEG Urine RBC LESS THAN 1 /hpf Microscopic Urinalysis Comment CULT NOT INDICATED White Blood Count 17.2 TH/MM3 14.5 TH/MM3 Red Blood Count 5.13 MIL/MM3 4.79 MIL/MM3 Hemoglobin 14.9 GM/DL 14.0 GM/DL Hematocrit 44.6 % 41.8 % Mean Corpuscular Volume 86.9 FL 87.3 FL Mean Corpuscular Hemoglobin 29.0 PG 29.2 PG Mean Corpuscular Hemoglobin Concent 33.4 % 33.4 % Red Cell Distribution Width 13.7 % 13.5 % Platelet Count 296 TH/MM3 276 TH/MM3 Mean Platelet Volume 8.2 FL 8.1 FL Neutrophils (%) (Auto) 79.0 % 75.4 % Lymphocytes (%) (Auto) 13.8 % 15.2 % Monocytes (%) (Auto) 6.5 % 8.2 % Eosinophils (%) (Auto) 0.4 % 0.8 % Basophils (%) (Auto) 0.3 % 0.4 % Neutrophils # (Auto) 13.6 TH/MM3 11.0 TH/MM3 Lymphocytes # (Auto) 2.4 TH/MM3 2.2 TH/MM3 Monocytes # (Auto) 1.1 TH/MM3 1.2 TH/MM3 Eosinophils # (Auto) 0.1 TH/MM3 0.1 TH/MM3 Basophils # (Auto) 0.1 TH/MM3 0.1 TH/MM3 CBC Comment DIFF FINAL DIFF FINAL Differential Comment Blood Urea Nitrogen 7 MG/DL 8 MG/DL Creatinine 0.60 MG/DL 0.61 MG/DL Random Glucose 98 MG/DL 91 MG/DL Total Protein 7.3 GM/DL Albumin 3.1 GM/DL Calcium Level 9.2 MG/DL 8.6 MG/DL Alkaline Phosphatase 86 U/L Aspartate Amino Transf (AST/SGOT) 20 U/L Alanine Aminotransferase (ALT/SGPT) 24 U/L Total Bilirubin 0.5 MG/DL Sodium Level 131 MEQ/L 137 MEQ/L Potassium Level 3.9 MEQ/L 3.7 MEQ/L Chloride Level 95 MEQ/L 102 MEQ/L Carbon Dioxide Level 28.5 MEQ/L 24.6 MEQ/L Anion Gap 8 MEQ/L 10 MEQ/L Estimat Glomerular Filtration Rate 103 ML/MIN 101 ML/MIN Lipase 76 U/L Lactic Acid Level 0.7 mmol/L Imaging Last Impressions Abdomen/Pelvis CT 03/11/17 0919 Signed Impressions: Service Date/Time: Saturday, March 11, 2017 11:48 - CONCLUSION: There is intense inflammatory change and phlegmon involving the distal sigmoid at the rectosigmoid junction. The exam does demonstrate what is either a large diverticulum with some gas and stool within it or possibly a small abscess along the superior margin of the colon. This is not in a location which would be amenable to CT-guided drainage. Chucho Tellez MD Objective Remarks General: NAD, AAOx3 Chest: CTA Cardiac: Regular Abd: +BS, soft, mildly distended, left sided tenderness, no guarding or rebound Ext: No edema A/P Problem List: (1) Diverticulitis ICD Codes: K57.92 - Diverticulitis of intestine, part unspecified, without perforation or abscess without bleeding Status: Acute Plan: Diverticulitis Abdominal pain - Pt was admitted with worsening abd pain with remote hx of diverticulitis, constipation, and hx of colon polyps - CT Abd/pelvis (03/11/17) --> There is intense inflammatory change and phlegmon involving the distal sigmoid at the rectosigmoid junction. The exam does demonstrate what is either a large diverticulum with some gas and stool within it or possibly a small abscess along the superior margin of the colon. This is not in a location which would be amenable to CT -guided drainage. - Cont Flagyl and Levaquin IV - IVF - KUB today as pt complains of some gas pain and constipation. - Clear liquid diet, may consider advancing to full liquids after breakfast if tolerating. - Pain control PRN - Antiemetics PRN - Appreciate CRS consultation, pt will need followup with CRS upon discharge - Supportive care GERD - PPI COPD - Cont. home meds - Duonebs PRN (2) GERD (gastroesophageal reflux disease) ICD Codes: K21.9 - Gastro-esophageal reflux disease without esophagitis Status: Chronic Plan: - See above (3) COPD (chronic obstructive pulmonary disease) ICD Codes: J44.9 - Chronic obstructive pulmonary disease, unspecified Status: Chronic Plan: - See above Assessment and Plan Patient examined. Assessment and plan formulated with Tere Rogers PA-C. I agree with the above. diverticulitis. doing better. no bm. laxative. ivf and cont iv abx today. full liquid. plan for d/c tomorrow with crs f/u. Tere Rogers Mar 13, 2017 10:06 Tim Gauthier MD Mar 13, 2017 12:40
--- NOTE | 2017-03-13 10:44 | RADRPT ---
EXAM DATE/TIME: 03/13/2017 10:10 [place] COMPARISON: No previous studies available for comparison. INDICATIONS : Abdomen pain. MEDICAL HISTORY : Diverticulitis. SURGICAL HISTORY : None. ENCOUNTER: Initial ACUITY: 2 days PAIN SCORE: 7/10 LOCATION: Bilateral abdomen FINDINGS: 2 AP supine views of the abdomen and pelvis were obtained. The abdominal bowel gas pattern is normal . No abnormal masses, calcifications, or organomegaly is seen. The osseous structures are unremarka ble. CONCLUSION: Unremarkable bowel gas pattern. Dl Lynne MD on March 13, 2017 at 10:41 Board Certified Radiologist. This report was verified electronically.
[2017-03-13] MEDS ORDERED: LACTULOSE SYRUP 20 GM/30 ML CUP PO ONE (11:45)
[2017-03-13] MEDS ORDERED: LACTULOSE SYRUP 20 GM/30 ML CUP PO PRN (11:45)
[2017-03-13 12:00] VITALS: BP 128/72; PULSE 79; RESP 17; TEMP 98.4; O2SAT 93
--- NOTE | 2017-03-13 12:11 | HHI.PR ---
Subjective Remarks Diverticulitis Still hasn't had bowel movement less painful Objective Vital Signs Date Time Temp Pulse Resp B/P (MAP) Pulse Ox O2 Delivery O2 Flow Rate FiO2 03/13/17 08:46 18 03/13/17 08:00 97.1 78 17 117/75 (89) 93 03/13/17 04:00 99.6 78 22 116/70 (85) 93 03/13/17 00:00 97.6 78 22 130/73 (92) 93 03/12/17 20:00 97.9 85 18 145/82 (103) 94 03/12/17 16:00 97.2 81 17 133/72 (92) 97 I/O 03/12/17 03/12/17 03/12/17 03/13/17 03/13/17 03/13/17 07:00 15:00 23:00 07:00 15:00 23:00 Intake Total 240 ml 300 ml 480 ml 120 ml Output Total 300 ml Balance 240 ml 300 ml 480 ml -180 ml Intake Oral 240 ml 480 ml 120 ml IV Total 300 ml Output Urine Total 300 ml # Voids 4 # Bowel Movements 0 0 Result Diagram: 03/12/17 0751 03/12/17 0751 Objective Remarks Abdomen soft, nondistended, less tender Assessment and Plan Assessment and Plan Agree with full liquids Would use MiraLax rather than Lactulose Margret Walsh MD Mar 13, 2017 12:11
[2017-03-13] MEDS: LEVOFLOXACIN 500 MG PREMIX INJ 100 ML IV SCH (12:42)
[2017-03-13 16:00] VITALS: BP 148/80; PULSE 107; RESP 17; TEMP 96.6; O2SAT 93
[2017-03-13 20:00] VITALS: BP 164/84; PULSE 92; RESP 18; TEMP 99.3; O2SAT 93
[2017-03-14] VITALS: BP 125/68; PULSE 78; RESP 18; TEMP 99.6; O2SAT 92
[2017-03-14] MEDS: SODIUM CHLOR 0.9% 1000 ML INJ 1,000 ML IV SCH (00:38)
[2017-03-14] MEDS: metroNIDAZOLE 500 MG INJ 100 ML IV SCH (05:17)
[2017-03-14] MEDS: MORPHINE SULFATE 4 MG/ML INJ IV PUSH PRN (05:24)
[2017-03-14 07:30] LABS: AUTOMATED NEUTROPHIL # 10.9 TH/MM3 (1.8-7.7); BASOPHIL % 0.2 % (0.0-2.0); EOSINOPHIL # 0.2 TH/MM3 (0-0.4); EOSINOPHIL % 1.5 % (0.0-4.0); HEMATOCRIT 38.4 % (35.0-46.0); HEMO FLAGS DIFF FINAL; LYMPH % 12.7 % (9.0-44.0); LYMPHOCYTE # 1.8 TH/MM3 (1.0-4.8); MEAN CELL VOLUME 87.3 FL (80.0-100.0); MEAN CORPUSCULAR HEMOGLOBIN 29.9 PG (27.0-34.0); MEAN CORPUSCULAR HGB CONC 34.2 % (32.0-36.0); MONO % 8.4 % (0.0-8.0); NEUT % 77.2 % (16.0-70.0); PLATELET COUNT 257 TH/MM3 (150-450); RED CELL DISTRIBUTION WIDTH 13.4 % (11.6-17.2); WHITE BLOOD COUNT 14.1 TH/MM3 (4.0-11.0)
[2017-03-14 08:00] VITALS: BP 113/76; PULSE 84; RESP 20; TEMP 97; O2SAT 95
[2017-03-14] MEDS: DOCUSATE SODIUM 100 MG CAP PO SCH (08:23)
[2017-03-14] MEDS ORDERED: POLYETHYLENE GLYCOL 17 GM PKG PO SCH (09:00)
--- NOTE | 2017-03-14 09:04 | HHI.PR ---
Subjective Remarks Pt reports still with some abdominal pain early this morning requiring IV pain meds Pt had a small soft BM Some slight nausea Tolerating full liquid diet. Objective Vitals Vital Signs Date Time Temp Pulse Resp B/P (MAP) Pulse Ox O2 Delivery O2 Flow Rate FiO2 03/14/17 08:00 97.0 84 20 113/76 (88) 95 03/14/17 00:00 99.6 78 18 125/68 (87) 92 03/13/17 20:00 99.3 92 18 164/84 (110) 93 03/13/17 16:00 96.6 107 17 148/80 (102) 93 03/13/17 13:51 18 03/13/17 12:00 98.4 79 17 128/72 (90) 93 03/14/17 03/14/17 03/15/17 15:00 23:00 07:00 Intake Total 120 ml Balance 120 ml Intake Oral 120 ml Result Diagram: 03/14/17 0612 03/12/17 0751 Other Results Laboratory Tests Test 03/14/17 06:12 White Blood Count 14.1 TH/MM3 Red Blood Count 4.40 MIL/MM3 Hemoglobin 13.1 GM/DL Hematocrit 38.4 % Mean Corpuscular Volume 87.3 FL Mean Corpuscular Hemoglobin 29.9 PG Mean Corpuscular Hemoglobin Concent 34.2 % Red Cell Distribution Width 13.4 % Platelet Count 257 TH/MM3 Mean Platelet Volume 8.2 FL Neutrophils (%) (Auto) 77.2 % Lymphocytes (%) (Auto) 12.7 % Monocytes (%) (Auto) 8.4 % Eosinophils (%) (Auto) 1.5 % Basophils (%) (Auto) 0.2 % Neutrophils # (Auto) 10.9 TH/MM3 Lymphocytes # (Auto) 1.8 TH/MM3 Monocytes # (Auto) 1.2 TH/MM3 Eosinophils # (Auto) 0.2 TH/MM3 Basophils # (Auto) 0.0 TH/MM3 CBC Comment DIFF FINAL Differential Comment Imaging Last Impressions Abdomen X-Ray 03/13/17 0000 Signed Impressions: Service Date/Time: Monday, March 13, 2017 10:10 - CONCLUSION: Unremarkable bowel gas pattern. Dl Lynne MD Abdomen/Pelvis CT 03/11/17 0919 Signed Impressions: Service Date/Time: Saturday, March 11, 2017 11:48 - CONCLUSION: There is intense inflammatory change and phlegmon involving the distal sigmoid at the rectosigmoid junction. The exam does demonstrate what is either a large diverticulum with some gas and stool within it or possibly a small abscess along the superior margin of the colon. This is not in a location which would be amenable to CT-guided drainage. Chucho Tellez MD Last Impressions Abdomen/Pelvis CT 03/11/17 0919 Signed Impressions: Service Date/Time: Saturday, March 11, 2017 11:48 - CONCLUSION: There is intense inflammatory change and phlegmon involving the distal sigmoid at the rectosigmoid junction. The exam does demonstrate what is either a large diverticulum with some gas and stool within it or possibly a small abscess along the superior margin of the colon. This is not in a location which would be amenable to CT-guided drainage. Chucho Tellez MD Objective Remarks General: NAD, AAOx3 Chest: CTA Cardiac: Regular Abd: +BS, soft, mildly distended, left sided tenderness, no guarding or rebound Ext: No edema A/P Problem List: (1) Diverticulitis ICD Codes: K57.92 - Diverticulitis of intestine, part unspecified, without perforation or abscess without bleeding Status: Acute Plan: Diverticulitis Abdominal pain - Pt was admitted with worsening abd pain with remote hx of diverticulitis, constipation, and hx of colon polyps - CT Abd/pelvis (03/11/17) --> There is intense inflammatory change and phlegmon involving the distal sigmoid at the rectosigmoid junction. The exam does demonstrate what is either a large diverticulum with some gas and stool within it or possibly a small abscess along the superior margin of the colon. This is not in a location which would be amenable to CT -guided drainage. - Change Flagyl and Levaquin to po this morning - KUB (03/13) --> Unremarkable bowel gas pattern - Pt tolerating full liquid diet - Pain control PRN, change to only oral pain meds to see if pain is controlled with just oral [place] - Antiemetics PRN - Appreciate CRS consultation, pt will need followup with CRS upon discharge - Supportive care GERD - PPI COPD - Cont. home meds - Duonebs PRN (2) GERD (gastroesophageal reflux disease) ICD Codes: K21.9 - Gastro-esophageal reflux disease without esophagitis Status: Chronic Plan: - See above (3) COPD (chronic obstructive pulmonary disease) ICD Codes: J44.9 - Chronic obstructive pulmonary disease, unspecified Status: Chronic Plan: - See above Assessment and Plan Patient examined. Assessment and plan formulated with Tere Rogers PA-C. I agree with the above. diverticulitis. d/c on abx and laxative and f/u CRS. might need resected later once bowel inflammation improved. Problem Qualifiers (1) Diverticulitis: Qualified Codes: K57.92 - Diverticulitis of intestine, part unspecified, without perforation or abscess without bleeding Tere Rogers Mar 14, 2017 09:04 Tim Gauthier MD Mar 14, 2017 13:11
[2017-03-14 12:00] VITALS: BP 116/73; PULSE 83; RESP 20; TEMP 98.3; O2SAT 95
[2017-03-14] MEDS ORDERED: LEVOFLOXACIN 500 MG TAB PO SCH (12:00)
[2017-03-14] MEDS ORDERED: LEVO500T8 PO (12:55)
[2017-03-14] MEDS ORDERED: ZOFR4TAB3 SL (12:55)
[2017-03-14] MEDS ORDERED: METR-1 PO (12:55)
[2017-03-14] MEDS ORDERED: POLY17S PO (13:01)
--- NOTE | 2017-03-14 13:01 | HHI.DS ---
Discharge Summary Admission Date Mar 11, 2017 at 14:01 Discharge Date: Mar 14, 2017 Admitting Diagnosis diverticulitis, possible abscess (1) Diverticulitis Diagnosis: Principal ICD Codes: K57.92 - Diverticulitis of intestine, part unspecified, without perforation or abscess without bleeding Status: Acute (2) GERD (gastroesophageal reflux disease) Diagnosis: Secondary ICD Codes: K21.9 - Gastro-esophageal reflux disease without esophagitis Status: Chronic (3) COPD (chronic obstructive pulmonary disease) Diagnosis: Secondary ICD Codes: J44.9 - Chronic obstructive pulmonary disease, unspecified Status: Chronic Consultants Dr. Margret Walsh - CRS Brief History Mrs. Sweet is a pleasant 56 y/o WF with COPD, GERD, hx of colon polyps and hx of diverticulitis. Pt presented to the ED with complaints of abd pain. The pt started having abd pain around 10 days ago. She was seen at urgent care on with complaints of abd pain and dysuria and was given Macrobid x 7 days for possible UTI. She had some slight improvement while on the antibiotics but then after that was completed she started having more abd pain in the lower abdomen and constipation. Over the last few days those symptoms seemed to worsen and this prompted her to go to the ED. She has had difficulty with passing stools and took OTC oral laxative the last two times to try to have a BM. The pain is located more in the LLQ and lower abd pain. CT Abd/pelvis in the ED noted intense inflammatory change and phlegmon involving the distal sigmoid at the rectosigmoid junction, the exam does demonstrate what is either a large diverticulum with some gas and stool within it or possibly a small abscess along the superior margin of the colon. This is not in a location which would be amenable to CT-guided drainage. Pt was given Cipro and Flagyl in the ED. She is being admitted for continued IV Abx and CRS was consulted from the ED. Pt has had some issues with fecal incontinence recently and is following with [facility]. She was supposed to have a colonoscopy scheduled but hasn't scheduled that yet. Her last colonoscopy was around 08/14/2008 and had noted a sessile polyp in the cecum and was recommended to have a repeat colonoscopy in 1 year which she has not had done. CBC/BMP: 03/14/17 0612 03/12/17 0751 Significant Findings Laboratory Tests Test 03/12/17 07:51 03/14/17 06:12 White Blood Count 14.5 TH/MM3 (4.0-11.0) 14.1 TH/MM3 (4.0-11.0) Neutrophils (%) (Auto) 75.4 % (16.0-70.0) 77.2 % (16.0-70.0) Monocytes (%) (Auto) 8.2 % (0.0-8.0) 8.4 % (0.0-8.0) Neutrophils # (Auto) 11.0 TH/MM3 (1.8-7.7) 10.9 TH/MM3 (1.8-7.7) Monocytes # (Auto) 1.2 TH/MM3 (0-0.9) 1.2 TH/MM3 (0-0.9) PE at Discharge General: NAD, AAOx3 Chest: CTA Cardiac: Regular Abd: +BS, soft, mildly distended, left sided tenderness, no guarding or rebound Ext: No edema Hospital Course Pt was admitted with worsening abd pain with remote hx of diverticulitis, constipation, and hx of colon polyps. CT Abd/pelvis (03/11/17) --> There is intense inflammatory change and phlegmon involving the distal sigmoid at the rectosigmoid junction. The exam does demonstrate what is either a large diverticulum with some gas and stool within it or possibly a small abscess along the superior margin of the colon. This is not in a location which would be amenable to CT-guided drainage. Pt was treated with IV Flagyl and Levaquin and tolerated these medications well. She was seen by CRS, Dr. Margret Walsh , who recommended continued treatment with Abx and followup outpt with CRS for surgical intervention after this is treated with Abx. The Flagyl and Levaquin were changed to po on 03/14. KUB (03/13) --> Unremarkable bowel gas pattern. Pt tolerating full liquid diet and recommended to advance to soft foods as tolerated. Pain control PRN with [place]. Antiemetics PRN. Pt will need to followup with Dr. Margret Walsh in 2 weeks She will need to followup with Dr. Garcia in 1 week Pt Condition on Discharge: Stable Discharge Disposition: Discharge Home Discharge Instructions DIET: Follow Instructions for: Soft Diet Activities you can perform: Regular-No Restrictions Follow up Referrals: Appointment for Follow Up - 1 Week with nasim walsh PCP Follow-up - [address] Garcia New Medications: Levofloxacin (Levofloxacin) 500 Mg Tablet 500 MG PO DAILY for Infection, #10 TAB 0 Refills Metronidazole (Flagyl) 500 Mg Tab 500 MG PO TID for Infection for 10 Days, TAB 0 Refills Ondansetron Odt (Zofran Odt) 4 Mg Tab 4 MG SL Q6HR PRN for Nausea/Vomiting, #30 TAB 0 Refills Continued Medications: Omeprazole (Omeprazole) 20 Mg Tab 20 MG PO DAILY, #30 TAB 0 Refills Umeclidinium-Vilanterol Inh (Anoro Ellipta Inh) 62.5-25 Mcg/Act Aero 1 PUFF INH DAILY for COPD, #1 INHALER 0 Refills Tere Rogers Mar 14, 2017 13:01 Tim Gauthier MD Mar 14, 2017 13:11
[2017-03-14] MEDS ORDERED: HYDR-3516 PO (13:10)
[2017-03-14] MEDS ORDERED: metroNIDAZOLE 500 MG TAB PO SCH (14:00)
[2017-03-14 15:47] VITALS: BP 123/96; PULSE 93; RESP 20; TEMP 96.9; O2SAT 95
== END 2017-03-14 18:16 | disposition home or self-care (01) | DRG 392 ==
LOC: NEPD 08:20 → NEDA 14:01 → N07A 18:05
PROVIDERS: ADMIT Hospitalist; ATTEND Hospitalist
DX: K57.20 Diverticulitis of large intestine with perforation and abscess without bleeding (principal); R15.9 Full incontinence of feces; I10 Essential (primary) hypertension; J44.9 Chronic obstructive pulmonary disease, unspecified; K59.00 Constipation, unspecified; K21.9 Gastro-esophageal reflux disease without esophagitis; F17.210 Nicotine dependence, cigarettes, uncomplicated; Z86.010 Personal history of colon polyps; Z88.1 Allergy status to other antibiotic agents; Z88.2 Allergy status to sulfonamides
CPT/HCPCS: 74000; 74177; 76937; 80048; 80053; 81001; 83605; 83690; 85025; 87040; 96361; 96365; 96375; J0744; J1956; J2270; J2405; J7030; Q9967